=== PATIENT | female | born 1985 | race African-American/Black ===

== ENCOUNTER 2019-06-08 07:09 | Emergency (ER) | payer MEDICAID ==
[~2019-06-08] VITALS: Ht 175.3 cm; Wt 82.0 kg
[2019-06-08 08:27] LABS: BASOPHILS % 0.9 % (0.0-2.0); EOSINOPHILS % 1.8 % (0.0-5.0); HEMATOCRIT. 37.6 % (36.0-48.0); HEMOGLOBIN. 12.6 g/dL (12.0-16.0); LYMPHOCYTES % 31.8 % (20.0-50.0); MEAN CORPUSCULAR HEMOGLOBIN 31.1 pg (28.0-32.0); MEAN CORPUSCULAR VOLUME 92.9 fL (81.0-99.0); MEAN PLATELET VOLUME 7.4 fl (7.4-10.4); MONOCYTES % 5.8 % (2.0-8.0); NEUTROPHILS % 59.7 % (40.0-76.0); PLATELET 294 x1000/uL (130-400); RED BLOOD CELL COUNT 4.04 mill/uL (4.2-5.4); RED CELL DISTRIBUTION WIDTH 13.1 % (11.6-14.6)
[2019-06-08 08:30] LABS: CHLORIDE 106 mEq/L (98-107)
[2019-06-08 08:58] LABS: B-HCG QUANTITATIVE 11552 mIU/mL (<3)
[2019-06-08 10:05] VITALS: BP 108/63
[2019-06-08 11:10] LABS: CLARITY URINE CLOUDY (CLEAR); COLOR URINE YELLOW (YELLOW); KETONES URINE NEGATIVE (NEGATIVE); LEUKOCYTE ESTERASE URINE NEGATIVE (NEGATIVE); NITRITE URINE NEGATIVE (NEGATIVE); OCCULT BLOOD URINE 3+ (NEGATIVE); PH URINE 6.5 (4.5-8.0); PROTEIN URINE NEGATIVE (NEGATIVE); SPECIFIC GRAVITY URINE 1.026 (1.005-1.030); UROBILINOGEN URINE 0.2 E.U./dL (0.2-1.0)
== END 2019-06-08 10:17 | disposition home or self-care (01) ==
LOC: ER 07:09
DX: O20.0 Threatened abortion (principal); Z3A.01 Less than 8 weeks gestation of pregnancy; Z98.890 Other specified postprocedural states
CPT/HCPCS: 36415; 76801; 81003; 81025; 84702; 99284

== ENCOUNTER 2025-08-07 17:23 | Emergency (ER) | payer MEDICAID ==
[~2025-08-07] VITALS: Ht 167.6 cm; Wt 68.0 kg
[2025-08-07 17:24] VITALS: O2SAT 98
[2025-08-07 17:45] VITALS: BP 131/87; PULSE 121; RESP 19; TEMP 36.5; O2SAT 99
[2025-08-07 18:04] LABS: BASOPHILS % 0.4 % (0.0-2.0); EOSINOPHILS % 2.4 % (0.0-5.0); HEMATOCRIT. 34.8 % (36.0-48.0); HEMOGLOBIN. 11.2 g/dL (12.0-16.0); LYMPHOCYTES % 32.2 % (20.0-50.0); MEAN PLATELET VOLUME 7.2 fl (7.4-10.4); MONOCYTES % 5.7 % (2.0-8.0); NEUTROPHILS % 59.3 % (40.0-76.0); PLATELET 335 x1000/uL (130-400); RED BLOOD CELL COUNT 4.05 mill/uL (4.2-5.4); RED CELL DISTRIBUTION WIDTH 19.4 % (11.6-14.6)
[2025-08-07 18:16] LABS: HCG SCREEN NEGATIVE
[2025-08-07 18:18] LABS: CREATININE 0.9 mg/dL (0.6-1.0); UREA NITROGEN BLOOD 6 mg/dL (9-23)
[2025-08-07 18:19] LABS: ASPARTATE AMINOTRANSFERASE 23 IU/L (<34)
[2025-08-07 18:20] LABS: BILIRUBIN DIRECT 0.1 mg/dL (<=3.0); BILIRUBIN TOTAL 0.4 mg/dL (0.1-1.0); PROTEIN TOTAL 6.6 g/dL (6.0-8.3)
[2025-08-07] MEDS: SODIUM CHLORIDE 0.9% 1,000 ML IV ONE (18:35)
[2025-08-07] MEDS: PANTOPRAZOLE SODIUM 40 MG/VIAL IV ONE (18:35)
[2025-08-07] MEDS: MAGNESIUM/ALUMINUM HYDROXIDE/SIMETHICONE 30ML UDC PO ONE (18:35)
== END 2025-08-07 19:23 | disposition home or self-care (01) ==
LOC: ER 17:23
DX: R10.13 Epigastric pain (principal); K20.90 Esophagitis, unspecified without bleeding
CPT/HCPCS: 80076; 80048; 80320; 84703; 83690; 85025; 36415; 71045; 96361; 96374; 99284; J2470; J7030; G0480